=== PATIENT | male | born 1950 | race Caucasian/White ===

== ENCOUNTER 2017-12-13 05:15 | Day surgery (SDC) | payer BC ==
[~2017-12-13] VITALS: Ht 185.4 cm; Wt 110.0 kg
[~2017-12-13 05:15] MED LIST: ASPIRIN EC325 M1 PO; ATENOLOL PO; ATENOLOL25 MG PO; Aspirin EC PO; FENOFIBRATE PO; FISH OIL 1,0001 EAC7 PO; GLUCOPHAGE500 MG PO; LISINOPRIL2.5 MG PO; LO-DOSE ASPIRIN81 M1 PO; LOFIBRA134 MG PO; NATURAL VITA100 UNIT PO; NEURONTIN300 MG PO; PLAVIX75 MG PO; Plavix PO; SIMVASTATIN40 MG PO; SIMVASTATIN80 M1 PO; STOOL SOFTENER100 MG PO; Simvastatin PO; THERAGRAN1 TABLET PO; TRAMADOL HCL50 MG PO; TRAZODONE HCL100 MG PO; Tenormin PO; Trazodone HCl PO; ULTRAM50 MG PO; Ultram PO; ZESTRIL,PRINIV2.5 MG PO; Zestril,Prinivil PO
[2017-12-13] MEDS ORDERED: TYLENOL EXTRA500 MG PO (06:40)
[2017-12-13 06:53] VITALS: BP 134/65
[2017-12-13 11:46] VITALS: BP 176/94
[2017-12-13 12:55] VITALS: BP 164/81
[2017-12-13 14:48] VITALS: BP 137/72
== END 2017-12-13 14:55 | disposition home or self-care (01) ==
LOC: SDC 05:15
PROVIDERS: Neurological Surgery
DX: M51.16 Intervertebral disc disorders with radiculopathy, lumbar region (principal); I10 Essential (primary) hypertension; E11.9 Type 2 diabetes mellitus without complications; I25.2 Old myocardial infarction; E78.5 Hyperlipidemia, unspecified; I25.10 Atherosclerotic heart disease of native coronary artery without angina pectoris; Z95.1 Presence of aortocoronary bypass graft; Z79.01 Long term (current) use of anticoagulants; Z82.49 Family history of ischemic heart disease and other diseases of the circulatory system
CPT/HCPCS: 72020; 76000; 82948; J0131; J0690; J1100; J1170; J2250; J2405; J2710; J2765; J3010; S0020